=== PATIENT | male | born 1985 | race Caucasian/White ===

== ENCOUNTER 2018-09-29 17:28 | Emergency (ER) | payer SELFPAY ==
--- NOTE | 2018-09-29 18:55 | EDM.PDOCBH ---
ED HPI GENERAL MEDICAL PROBLEM - General Chief Complaint: Behavioral/Psych Stated Complaint: PANIC ATTACKS Time Seen by Provider: 09/29/18 18:54 Source of Information: Reports: Patient - History of Present Illness INITIAL COMMENTS - FREE TEXT/NARRATIVE: Patient presents to the emergency department today for evaluation of chest tightness and anxiety. Does have a long-standing history of anxiety, has Ativan at home that he has used previously but he did not take this today. He denies any specific trigger for his anxiety. Denies any chronic medical conditions. Most recently has been trying to quit smoking and he feels this made his anxiety worse. Denies any drug or alcohol use. Chest Pain Score (Numeric/FACES): 3 - Related Data Allergies Allergy/AdvReac Type Severity Reaction Status Date / Time bee venom protein (honey bee) Allergy unknown Verified 09/12/18 10:58 shellfish derived Allergy Chest Verified 09/12/18 10:58 Tightness Home Meds: Home Meds LORazepam [Ativan] 1 mg PO Q8H PRN #10 tablet 09/12/18 [Rx] Past Medical History - Past Health History Medical/Surgical History: Denies Medical/Surgical History Psychiatric History: Reports: Depression, Panic Attack - Infectious Disease History Infectious Disease History: Reports: Chicken Pox, Shingles Social & Family History - Family History Family Medical History: Noncontributory - Tobacco Use Smoking Status *Q: Current Every Day Smoker Years of Tobacco use: 18 Packs/Tins Daily: 1 - Caffeine Use Caffeine Use: Reports: Coffee - Recreational Drug Use Recreational Drug Use: No - Living Situation & Occupation Living situation: Reports: Occupation: Employed ED ROS GENERAL - Review of Systems Review Of Systems: See Below Constitutional: Reports: No Symptoms Respiratory: Reports: No Symptoms Cardiovascular: Reports: No Symptoms Skin: Reports: No Symptoms Psychiatric: Reports: Agitation, Anxiety. Denies: Depression, Homicidal Ideation, Suicidal Ideation ED EXAM, BEHAVIORAL HEALTH - Physical Exam Exam: See Below Exam Limited By: No Limitations General Appearance: Alert, WD/WN, No Apparent Distress Neck: Normal Inspection, Supple, Non-Tender Respiratory/Chest: No Respiratory Distress, Lungs Clear, Normal Breath Sounds Cardiovascular: Normal Peripheral Pulses, Regular Rate, Rhythm, No Murmur Neurological: Alert, Normal Mood/Affect, No Motor/Sensory Deficits Psychiatric: Alert, Normal Affect, Normal Cognition, Normal Mood, Oriented Skin Exam: Warm, Dry, Intact COURSE, BEHAVIORAL HEALTH COMP - Course Vital Signs: Last Vital Signs Temp 98.7 F 09/29/18 17:39 Pulse 129 H 09/29/18 17:39 Resp 20 09/29/18 17:39 BP 151/108 H 09/29/18 17:39 Pulse Ox 99 09/29/18 17:39 Re-Assessment/Re-Exam: As it was a fairly busy evening, patient was waiting in his room for approximately one hour prior to being seen by a provider. When I went in there , patient states that the chest tightness has resolved, anxiety as calmed significantly. No concerns on physical exam. Patient declines to have lab work or EKG for evaluation of his chest tightness. Patient prefers to go home. He will take the Ativan he has at home if needed. He was follow up with his primary care provider on Monday to discuss more long- term options for controlling his anxiety. Departure - Departure Time of Disposition: 19:08 Disposition: Home, Self-Care 01 Condition: Good Clinical Impression: Anxiety - Discharge Information Instructions: Panic Attack, [id number], Living With Anxiety Referrals: Mathew Richey MD [Physician] - Forms: ED Department Discharge Additional Instructions: You were evaluated in the emergency department today for anxiety. You may use your Ativan at home as needed. Follow a healthy diet, exercise daily. Follow-up on Monday, he can schedule this at [phone]. Certainly return to the emergency room for any new or worsening symptoms.
== END 2018-09-29 19:40 | disposition home or self-care (01) ==
LOC: JD.ED 17:28
DX: F41.9 Anxiety disorder, unspecified (principal); F17.210 Nicotine dependence, cigarettes, uncomplicated; Z91.030 Bee allergy status
CPT/HCPCS: 99283

== ENCOUNTER 2019-02-05 10:39 | Emergency (ER) | payer SELFPAY ==
--- NOTE | 2019-02-05 11:10 | EDM.PDOCBH ---
ED HPI GENERAL MEDICAL PROBLEM - General Chief Complaint: Behavioral/Psych Stated Complaint: DEPRESSION AND ANXIETY Time Seen by Provider: 02/05/19 10:55 Source of Information: Reports: Patient, Old Records, RN Notes Reviewed History Limitations: Reports: No Limitations - History of Present Illness INITIAL COMMENTS - FREE TEXT/NARRATIVE: The patient is a 33-year-old male who presents to the ED for just not feeling right. He states that he can only describe this as feeling out of his body. He notes that he does have a history of anxiety. He states that this was present this morning he just woke up feeling this way. He notes last night that he did have a few beers, however he denies any other drug use. He states he is also a cigarette smoker. He denies any chest pain, shortness of breath, nausea/vomiting/diarrhea. The patient notes that he feels like this is anxiety but it is way worse than he has had before. He further denies any chest palpitations at this time. He notes his primary care provider to be Jamia Browning, and he has been on blood pressure medications, citalopram 40 mg daily and lorazepam as needed. He further notes that for the last month, he has come into bit of a hard patch and has not been able to afford his medications so he has not been taking them as prescribed. - Related Data Allergies Allergy/AdvReac Type Severity Reaction Status Date / Time bee venom protein (honey bee) Allergy unknown Verified 09/12/18 10:58 shellfish derived Allergy Chest Verified 09/12/18 10:58 Tightness Past Medical History - Past Health History Medical/Surgical History: Denies Medical/Surgical History Psychiatric History: Reports: Anxiety, Depression, Panic Attack - Infectious Disease History Infectious Disease History: Reports: Chicken Pox, Shingles Social & Family History - Family History Family Medical History: Noncontributory - Tobacco Use Smoking Status *Q: Current Every Day Smoker Years of Tobacco use: 20 Packs/Tins Daily: 1 - Caffeine Use Caffeine Use: Reports: Soda - Recreational Drug Use Recreational Drug Use: No - Living Situation & Occupation Living situation: Reports: Occupation: Employed ED ROS GENERAL - Review of Systems Review Of Systems: See Below Constitutional: Denies: Fever, Chills HEENT: Reports: No Symptoms Respiratory: Reports: No Symptoms Cardiovascular: Reports: No Symptoms Endocrine: Reports: No Symptoms GI/Abdominal: Reports: No Symptoms : Reports: No Symptoms Musculoskeletal: Reports: No Symptoms Skin: Reports: No Symptoms Neurological: Reports: No Symptoms Psychiatric: Reports: Anxiety. Denies: Hallucinations, Suicidal Ideation Hematologic/Lymphatic: Reports: No Symptoms Immunologic: Reports: No Symptoms ED EXAM, BEHAVIORAL HEALTH - Physical Exam Exam: See Below Exam Limited By: No Limitations General Appearance: Alert, WD/WN, Anxious (patient is picking at his nail beds, and breathing heavier than normal) Head: Atraumatic, Normocephalic Neck: Normal Inspection Respiratory/Chest: No Respiratory Distress, Lungs Clear, Normal Breath Sounds, No Accessory Muscle Use, Chest Non-Tender Cardiovascular: Normal Peripheral Pulses, Regular Rate, Rhythm, No Murmur GI/Abdominal: Normal Bowel Sounds, Soft, Non-Tender, No Distention, No Mass Extremities: Normal Inspection, Normal Capillary Refill Neurological: Alert, Normal Mood/Affect, Normal Cognition, Normal Gait, Normal Reflexes, Oriented x 3 Psychiatric: Alert, Normal Affect, Normal Cognition, Normal Mood (However he appears more anxious than normal.), Oriented. No: Depressed Mood, Church Delusions, Suicidal Plan, Suicidal Thoughts, Auditory Hallucinations Skin Exam: Warm, Dry, Intact, Normal color, No rash COURSE, BEHAVIORAL HEALTH COMP - Course Vital Signs: Last Vital Signs Temp 98.1 F 02/05/19 10:47 Pulse 125 H 02/05/19 10:47 Resp 20 02/05/19 10:47 BP 168/103 H 02/05/19 10:47 Pulse Ox 98 02/05/19 10:47 Discharge vs Psych Eval/Treatment:: 02/05/19 11:19 Patient presents to the ED for the evaluation of increased anxiety. The patient has not been on his citalopram like he should be, it is likely that he mood today is caused from a panic attack after not being on the medication for roughly 1 month. I did offer him some lab work and EKG to make sure that there was nothing else wrong, he denied any further workup. I also offered to give him some Ativan in the ED, he states he has some at home that he will just take if needed. He wishes to be discharged so that he can go back to work. I did make it known to the patient that he should follow up with Jamia for possible refill or change in his medication. He is understanding of this. Departure - Departure Time of Disposition: 11:07 Disposition: Home, Self-Care 01 Condition: Fair Clinical Impression: Panic attack - Discharge Information *PRESCRIPTION DRUG MONITORING PROGRAM REVIEWED*: No *COPY OF PRESCRIPTION DRUG MONITORING REPORT IN PATIENT JAYLIN: No Instructions: Panic Attack, [id number], Living With Anxiety Referrals: Jamia Browning NP [Primary Care Provider] - Forms: ED Department Discharge Additional Instructions: You have been evaluated in the ED today for your feelings of not being right. This is most likely due to anxiety, or panic attack. A panic attack is like your normal anxiety amplified by 10. The treatment for breakthrough anxiety, would be to take your Ativan (lorazepam) as needed for these symptoms. Recommend that you obtain your previous medications (citalopram 40 mg daily) and take them as prescribed. These will help your anxiety symptoms for long- term use. Recommend that you follow up with your primary care provider within the next week or 2 to get your medications refilled. Please return to the ED if your symptoms should change or worsen.
== END 2019-02-05 11:14 | disposition home or self-care (01) ==
LOC: JD.ED 10:39
DX: F41.0 Panic disorder [episodic paroxysmal anxiety] (principal); F17.210 Nicotine dependence, cigarettes, uncomplicated
CPT/HCPCS: 99283

== ENCOUNTER 2025-02-20 07:16 | Emergency (ER) | payer OTHER ==
[2025-02-20] MEDS ORDERED: Sodium Chloride 0.9% 10 ML Syringe FLUSH PRN (07:48)
[2025-02-20] MEDS: Sodium Chloride 0.9% 1,000 ML IV ONE (07:55)
[2025-02-20 07:57] LABS: BASOPHILS ABSOLUTE AUTO 0.1 K/mm3 (0.0-0.2); EOSINOPHILS ABSOLUTE AUTO 0.1 K/mm3 (0.0-0.4); EOSINOPHILS PERCENT AUTO 2.4 % (0.0-6.0); HEMOGLOBIN 15.6 gm/dl (14.0-18.0); IMMATURE GRAN ABSOLUTE AUTO 0.02 K/mm3 (0.00-0.05); IMMATURE GRAN PERCENT AUTO 0.4 % (0.0-0.4); LYMPHOCYTES ABSOLUTE AUTO 1.9 K/mm3 (1.0-4.8); LYMPHOCYTES PERCENT AUTO 40.8 % (24.0-44.0); MEAN CORPUSCULAR HEMOGLOBIN 30.5 pg (28.0-32.0); MEAN CORPUSCULAR HGB CONC 34.7 g/dl (32.0-36.0); MEAN CORPUSCULAR VOLUME 88.1 fl (83.0-99.0); MEAN PLATELET VOLUME 9.8 fl (9.4-12.4); MONOCYTES ABSOLUTE AUTO 0.4 K/mm3 (0.0-0.8); MONOCYTES PERCENT AUTO 7.6 % (0.0-8.0); NEUTROPHILS ABSOLUTE AUTO 2.2 K/mm3 (1.8-7.7); NEUTROPHILS PERCENT AUTO 46.8 % (41.0-71.0); PLATELET COUNT,PLT 272 K/mm3 (150-400); RED BLOOD CELL COUNT 5.11 M/mm3 (4.52-5.90); WHITE BLOOD CELL COUNT,WBC 4.61 K/mm3 (3.9-11.3)
[2025-02-20 08:16] LABS: A/G RATIO 1.2 (1-2); ALANINE AMINOTRANSFERASE,ALT 60 U/L (16-63); ALBUMIN 3.9 g/dl (3.4-5.0); ALKALINE PHOSPHATASE 89 U/L (46-116); ANION GAP 17.6 (5-15); ASPARTATE AMNIOTRANSFERASE,AST 36 U/L (15-37); BILIRUBIN TOTAL 0.2 mg/dL (0.2-1.0); BLOOD UREA NITROGEN,BUN 5 mg/dL (7-18); CALCIUM 8.9 mg/dL (8.5-10.1); CARBON DIOXIDE,CO2 22 mEq/L (21-32); CHLORIDE,CL 103 mEq/L (98-107); ESTIMATED GFR 98 mL/min (>60); ETHANOL BLOOD MEDICAL 0.01 gm% (0.00); GLUCOSE RANDOM 119 mg/dL (70-99); MAGNESIUM 1.7 mg/dL (1.8-2.4); POTASSIUM,K 3.6 mEq/L (3.5-5.1); PROTEIN TOTAL,TP 7.3 g/dl (6.4-8.2); SODIUM,NA 139 mEq/L (136-145)
[2025-02-20 08:17] LABS: TROPONIN I HIGH SENSITIVITY < 4 pg/mL (<=76)
[2025-02-20] MEDS: Pantoprazole 40 MG Vial IVPUSH ONE (08:26)
[2025-02-20 09:21] LABS: BARBITURATE SCREEN,URINE NEGATIVE (CUTOFF=200); BENZODIAZEPINES SCREEN,URINE NEGATIVE (CUTOFF=150); BUPRENORPHINE SCREEN,URINE NEGATIVE (CUTOFF=10); METHADONE SCREEN, URINE NEGATIVE (CUT0FF=200); METHAMPHETAMINES SCREEN, URINE NEGATIVE (CUTOFF=500); OXYCODONE SCREEN,URINE NEGATIVE (CUT0FF=100); THC SCREEN,URINE 20 NG/ML NEGATIVE (CUTOFF=50)
[2025-02-20 09:43] LABS: AMPHETAMINES SCREEN, URINE NEGATIVE (CUTOFF=500)
== END 2025-02-20 10:45 | disposition home or self-care (01) ==
LOC: JD.ED 07:16
DX: R07.89 Other chest pain (principal); I10 Essential (primary) hypertension; Z79.899 Other long term (current) drug therapy; Z91.030 Bee allergy status
CPT/HCPCS: 36415; 71045; 80053; 80306; 80307; 83735; 84443; 84484; 85025; 85379; 93005; 96361; 96374; 99285; J2470; J7030

== ENCOUNTER 2025-08-25 09:49 | Emergency (ER) | payer BC, OTHER ==
[2025-08-25 10:07] LABS: BASOPHILS ABSOLUTE AUTO 0.1 K/mm3 (0.0-0.2); BASOPHILS PERCENT AUTO 0.9 % (0.0-1.0); EOSINOPHILS ABSOLUTE AUTO 0.0 K/mm3 (0.0-0.4); EOSINOPHILS PERCENT AUTO 0.2 % (0.0-6.0); IMMATURE GRAN ABSOLUTE AUTO 0.03 K/mm3 (0.00-0.05); IMMATURE GRAN PERCENT AUTO 0.3 % (0.0-0.4); LYMPHOCYTES ABSOLUTE AUTO 2.1 K/mm3 (1.0-4.8); LYMPHOCYTES PERCENT AUTO 21.2 % (24.0-44.0); MEAN PLATELET VOLUME 11.0 fl (9.4-12.4); MONOCYTES ABSOLUTE AUTO 0.6 K/mm3 (0.0-0.8); MONOCYTES PERCENT AUTO 5.8 % (0.0-8.0); NEUTROPHILS ABSOLUTE AUTO 6.9 K/mm3 (1.8-7.7); NEUTROPHILS PERCENT AUTO 71.6 % (41.0-71.0); NRBC ABSOLUTE 0.00 (0.00-0.02); NRBC PERCENT 0.0 % (0.0-0.2); PLATELET COUNT,PLT 250 K/mm3 (150-400); RED BLOOD CELL COUNT 5.24 M/mm3 (4.52-5.90); WHITE BLOOD CELL COUNT,WBC 9.65 K/mm3 (3.9-11.3)
[2025-08-25] MEDS: Sodium Chloride 0.9% 10 ML Syringe FLUSH PRN (10:13)
[2025-08-25 10:55] LABS: A/G RATIO 1.1 (1-2); ALANINE AMINOTRANSFERASE,ALT 30.0 U/L (16-63); ASPARTATE AMNIOTRANSFERASE,AST 18.0 U/L (15-37); BILIRUBIN TOTAL 0.5 mg/dL (0.2-1.0); BLOOD UREA NITROGEN,BUN 6.0 mg/dL (7-18); CARBON DIOXIDE,CO2 20.0 mEq/L (21-32); CHLORIDE,CL 103.0 mEq/L (98-107); CREATININE 0.9 mg/dL (0.7-1.3); EST CRCL DRUG DOSING (CG) 105.56 mL/min; ESTIMATED GFR 111.0 mL/min (>60); GLUCOSE RANDOM 103.0 mg/dL (70-99); POTASSIUM,K 3.7 mEq/L (3.5-5.1); PROTEIN TOTAL,TP 7.2 g/dl (6.4-8.2); SODIUM,NA 139.0 mEq/L (136-145); TROPONIN I HIGH SENSITIVITY 8.0 pg/mL (<=76)
[2025-08-25] MEDS: LORazepam 2 MG/ML SDV IVPUSH ONE (12:02)
== END 2025-08-25 12:56 | disposition home or self-care (01) ==
LOC: JD.ED 09:49
DX: R07.89 Other chest pain (principal); F41.9 Anxiety disorder, unspecified; E86.0 Dehydration; I10 Essential (primary) hypertension; Z91.030 Bee allergy status; Z79.899 Other long term (current) drug therapy
CPT/HCPCS: 36415; 71045; 80053; 83735; 84484; 85025; 85379; 93005; 96361; 96374; 99285; A9270; J2060; J7030; 93010; 99284